=== PATIENT | female | born 1990 | race African-American/Black ===

== ENCOUNTER 2019-04-21 14:13 | Emergency (ER) | payer MEDICAID ==
[~2019-04-21] VITALS: Ht 167.6 cm; Wt 55.0 kg
[2019-04-21 14:25] VITALS: BP 129/83
== END 2019-04-21 15:56 | disposition left against medical advice (07) ==
LOC: ER 14:13
DX: Z53.21 Procedure and treatment not carried out due to patient leaving prior to being seen by health care provider (principal)